=== PATIENT | female | born 1970 | race Two or more races ===

== ENCOUNTER 2018-11-16 06:43 | Inpatient (IN) | payer OTHER ==
[~2018-11-16] VITALS: Ht 162.6 cm; Wt 56.2 kg
[2018-11-16] MEDS ORDERED: LOSARTAN POTASS50 MG (07:00)
[2018-11-18] MEDS ORDERED: HYOSCYAMINE0.125 M1 SL (13:32)
[2018-11-18] MEDS ORDERED: ATIVAN0.5 MG PO (13:32)
[2018-11-18] MEDS ORDERED: INTESTINEX680 M1 PO (13:33)
== END 2018-11-18 14:49 | disposition home or self-care (01) | DRG 392 ==
LOC: ER 06:43 → SURH 08:40
PROVIDERS: ADMIT Surgery
DX: K57.32 Diverticulitis of large intestine without perforation or abscess without bleeding (principal); I10 Essential (primary) hypertension; R10.32 Left lower quadrant pain; F41.1 Generalized anxiety disorder; F41.0 Panic disorder [episodic paroxysmal anxiety]

== ENCOUNTER 2019-01-07 07:47 | Outpatient (CLI) | payer OTHER ==
[~2019-01-07 07:47] MED LIST: ATIVAN0.5 MG PO; HYOSCYAMINE0.125 M1 SL; INTESTINEX680 M1 PO; LOSARTAN POTASS50 MG
== END 2019-01-07 07:49 | disposition home or self-care (01) ==
LOC: TOM 07:47
DX: K57.32 Diverticulitis of large intestine without perforation or abscess without bleeding (principal); K64.8 Other hemorrhoids

== ENCOUNTER → 2019-04-23 06:00 | Outpatient (CLI) | payer OTHER ==
[~2019-04-23] VITALS: Ht 162.6 cm; Wt 58.5 kg
[~2019-04-23 06:00] MED LIST changes: +AMBIEN10 MG PO; +LEVO-T50 MCG PO; +LORAZEPAM0.5 MG PO; +PROZAC20 MG PO; +VALSARTAN160 MG PO
== END | disposition home or self-care (01) ==
LOC: EKG 06:00 → SURH 04-28 08:45 → O/R 04-28 09:00 → EDSTATUS 04-28 09:00
DX: K57.32 Diverticulitis of large intestine without perforation or abscess without bleeding (principal); K64.8 Other hemorrhoids; Z01.818 Encounter for other preprocedural examination

== ENCOUNTER 2020-05-04 11:15 | Inpatient (IN) | payer OTHER ==
[~2020-05-04] VITALS: Ht 165.1 cm; Wt 59.0 kg
[2020-05-05] MEDS ORDERED: CYMBALTA30 MG PO (08:12)
[2020-05-05] MEDS ORDERED: ZOLPIDEM PO (08:12)
[2020-05-13] MEDS ORDERED: INTESTINEX680 M1 PO (16:02)
[2020-05-13] MEDS ORDERED: GAS RELIEF125 MG PO (16:02)
[2020-05-13] MEDS ORDERED: LEVSIN/SL0.125 MG PO (16:02)
== END 2020-05-13 17:01 | disposition home or self-care (01) | DRG 330 ==
LOC: SURH 11:15 → O/R 05-10 05:50 → SURH 05-10 11:15
PROVIDERS: ADMIT Surgery; ATTEND Surgery
PROC: 0DQ84ZZ Repair Small Intestine, Percutaneous Endoscopic Approach (ICD-10-PCS; 2020-05-10)
PROC: 0DBN4ZZ Excision of Sigmoid Colon, Percutaneous Endoscopic Approach (ICD-10-PCS; 2020-05-10)
PROC: 0DJD8ZZ Inspection of Lower Intestinal Tract, Via Natural or Artificial Opening Endoscopic (ICD-10-PCS; 2020-05-10)
PROC: 0DNW4ZZ Release Peritoneum, Percutaneous Endoscopic Approach (ICD-10-PCS; principal; 2020-05-10 12:30)
DX: K57.32 Diverticulitis of large intestine without perforation or abscess without bleeding (principal); K91.72 Accidental puncture and laceration of a digestive system organ or structure during other procedure; S36.438A Laceration of other part of small intestine, initial encounter; K64.8 Other hemorrhoids; N73.6 Female pelvic peritoneal adhesions (postinfective); I10 Essential (primary) hypertension; E03.9 Hypothyroidism, unspecified; I34.1 Nonrheumatic mitral (valve) prolapse; Y65.8 Other specified misadventures during surgical and medical care